=== PATIENT | male | born 1945 | race Caucasian/White ===

== ENCOUNTER 2016-11-28 18:59 | Emergency (ER) | payer MEDICARE, BC ==
[~2016-11-28] VITALS: Ht 188 cm; Wt 100.9 kg
[2016-11-28] MEDS ORDERED: PRAV20TA2 PO (19:20)
[2016-11-28] MEDS ORDERED: METOPROL (19:22)
[2016-11-28] MEDS ORDERED: METO1TAB87 PO (19:22)
--- NOTE | 2016-11-28 20:39 | ECGEPIP ---
Stationary ECG Study [facility] - ED Test Date: 2016-11-28 Pat Name: VIOLETA APODACA Department: Room: - Gender: M Insurance Office Manager: lola : 1945 Requested By: Figueroa Carty Order Number: [id number] Reading MD: Figueroa Carty Measurements Intervals [place] Rate: 96 P: -16 ID: [id number] QRS: 22 QRSD: 105 T: -12 QT: 355 QTc: 450 Interpretive Statements SINUS RHYTHM NONSPECIFIC ST T WAVE CHANGES BORDERLINE PROLONGED QTC NO OLD ECG FOR COMPARISON Electronically Signed On 11-28-2016 20:39:10 EDT by Figueroa Carty
[2016-11-28 22:01] LABS: ANION GAP 8 MEQ/L (8-16); BLOOD UREA NITROGEN 16 MG/DL (7-18); CALCIUM LEVEL 8.8 MG/DL (8.8-10.2); CARBON DIOXIDE LEVEL 25 MEQ/L (21-32); CHLORIDE LEVEL 110 MEQ/L (98-107); GLOMERULAR FILTRATION RATE > 60.0 (>42); GLUCOSE, FASTING 132 MG/DL (83-110); MAGNESIUM LEVEL 2.2 MG/DL (1.8-2.4); POTASSIUM SERUM 3.9 MEQ/L (3.5-5.1); SODIUM LEVEL 143 MEQ/L (136-145); T UPTAKE 36 % (33-40); THYROXINE (T4) 8.8 UG/DL (4.5-12.0)
[2016-11-28] MEDS ORDERED: ASPIRIN 325 MG TAB PO ONE (22:30)
[2016-11-28 22:39] LABS: BASO % 0.5 % (0.0-1.0); EOS % 0.5 % (0.0-3.0); LARGE UNSTAINED CELL # 0.1 K/mm3 (0.0-0.4); LARGE UNSTAINED CELL % 1.1 % (0.0-4.0); LYMPH # 1.1 K/mm3 (1.5-4.5); LYMPH % 12.6 % (24.0-44.0); MEAN CORPUSCULAR HEMOGLOBIN 29.5 pg (27.0-33.0); MEAN CORPUSCULAR HGB CONC 33.5 g/dl (32.0-36.5); MEAN CORPUSCULAR VOLUME 88.2 fl (80.0-96.0); MONO # 0.5 K/mm3 (0.0-0.8); MONO % 5.1 % (0.0-5.0); NEUTROPHILS # 7.2 K/mm3 (1.8-7.7); NEUTROPHILS % 80.2 % (36.0-66.0); PLATELET COUNT, AUTOMATED 237 k/mm3 (150-450); RED CELL DISTRIBUTION WIDTH 12.9 % (11.5-14.5)
[2016-11-28 22:41] LABS: INR 0.95
[2016-11-28] MEDS ORDERED: CLOPIDOGREL 300 MG TAB (PLAVIX) PO STA (23:18)
[2016-11-29 00:30] VITALS: BP 124/78
--- NOTE | 2016-11-29 07:12 | ECGEPIP ---
Stationary ECG Study [facility] - ED Test Date: 2016-11-28 Pat Name: VIOLETA APODACA Department: Room: - Gender: M [employer]ating Plant Superintendent: mishel : 1945 Requested By: JARON TYLER Order Number: [id number] Reading MD: Diana Thomas Measurements Intervals [place] Rate: 61 P: 24 NC: 172 QRS: 60 QRSD: 106 T: 42 QT: 399 QTc: 402 Interpretive Statements SINUS RHYTHM DECREASED RATE 11/28/16 19:16 Electronically Signed On 11-29-2016 7:12:15 EDT by Diana Thomas
--- NOTE | 2016-11-29 09:43 | REP ---
Portable chest, single AP view, patient sitting: There are no comparisons. The right hemidiaphragm is elevated. The visualized lung lester are clear. Cardiac size is normal. The lea, mediastinum, and bony thorax are unremarkable. Impression: There are no acute cardiopulmonary findings. Signed by Ernesto Le MD 11/29/2016 07:57 A
== END 2016-11-29 00:50 | disposition short-term general hospital (02) ==
LOC: M ED 18:59 → EDBD 18:59 → M ED 11-29 00:50
DX: I21.4 Non-ST elevation (NSTEMI) myocardial infarction (principal); I48.91 Unspecified atrial fibrillation; E78.5 Hyperlipidemia, unspecified; Z79.899 Other long term (current) drug therapy; Z88.1 Allergy status to other antibiotic agents; Z88.5 Allergy status to narcotic agent; Z88.8 Allergy status to other drugs, medicaments and biological substances